=== PATIENT | male | born 1990 | race American Indian/Alaskan Native ===

== ENCOUNTER 2018-01-10 18:38 | Emergency (ER) | payer SELFPAY ==
[2018-01-10 19:21] VITALS: BP 131/71
[2018-01-10 20:59] LABS: Bacteria,Urine 1+ /HPF (Negative); Bilirubin,Urine NEG (Negative); Blood,Urine NEG (Negative); Color,Urine Amber (Yellow); Mucus,Urine 1+ /HPF
[2018-01-10 21:01] LABS: WBC,Urine > 182.0 /HPF (0.0-6.0)
== END 2018-01-11 02:00 | disposition left against medical advice (07) ==
LOC: ED 18:38
DX: Z20.2 Contact with and (suspected) exposure to infections with a predominantly sexual mode of transmission (principal); Z53.21 Procedure and treatment not carried out due to patient leaving prior to being seen by health care provider
CPT/HCPCS: 81001; 87086

== ENCOUNTER 2018-01-13 07:51 | Emergency (ER) | payer SELFPAY ==
[2018-01-13 08:35] VITALS: BP 126/72
== END 2018-01-13 12:47 ==
LOC: ED 07:51
DX: Z20.2 Contact with and (suspected) exposure to infections with a predominantly sexual mode of transmission (principal); Z53.21 Procedure and treatment not carried out due to patient leaving prior to being seen by health care provider